=== PATIENT | female | born 1965 | race Caucasian/White ===

== ENCOUNTER 2022-06-09 10:30 | Outpatient (RCR) | payer BC, SELFPAY | END 2022-06-13 23:59 | LOC: DC 10:30 | DX: R73.03 Prediabetes (principal) | CPT/HCPCS: 97802; G0108 ==

== ENCOUNTER 2022-07-01 14:07 | Outpatient (RCR) | payer BC, SELFPAY | END 2022-07-14 23:59 | LOC: DC 14:07 | DX: R73.03 Prediabetes (principal) | CPT/HCPCS: 97803 ==

== ENCOUNTER 2022-07-16 16:01 | Outpatient (RCR) | payer BC, SELFPAY | END 2022-08-11 23:59 | LOC: DC 16:01 | DX: R73.03 Prediabetes (principal) | CPT/HCPCS: 97803 ==

== ENCOUNTER → 2024-07-07 | Outpatient (CLI) | payer BC, SELFPAY ==
[2024-07-07 10:54] LABS: Erythrocyte Sedimentation Rate 2 mm/hr (0-30)
[2024-07-07 10:57] LABS: Absolute Lymphocyte Count 1.88 X10^3/uL (0.83-4.51); Absolute Neutrophil Count 4.2 X10^3/uL (2.0-7.7); Basophil# 0.05 X10^3/uL; Basophil% 0.7 % (0-1); Eosinophil# 0.27 X10^3/uL; Eosinophils% 3.9 % (0-5); Hematocrit 40.5 % (37-47); Hemoglobin 13.5 g/dL (12.0-15.0); Lymphocyte # 1.88 X10^3/ul (0.83-4.51); Lymphocyte % 27.4 % (19-41); Mean Corp Hgb Conc 33.3 g/dL (32-36); Mean Corpuscular Volume 87.1 fL (81-99); Mean Platelet Vol. 8.8 fl (6.2-12.0); Monocyte# 0.46 X10^3/uL; Monocyte% 6.7 % (0-10); NRBC Flagged by Analyzer 0 % (0-5); Neutrophil # 4.17 X10^3/uL (2.7-7.7); Platelet Count 335 K/mm3 (150-450); RBC Distribution Width CV 13.1 % (11.6-14.6); RBC Distribution Width SD 41.1 fl (35.1-43.9); Red Blood Count 4.65 M/mm3 (4.2-5.4); White Blood Count 6.9 K/mm3 (4.4-11.0)
[2024-07-07 11:35] LABS: Vitamin B12 1468 pg/mL (211-911)
[2024-07-07 13:12] LABS: CRP < 2.90 mg/L (0.0-3.0); Ferritin 37 ng/mL (8-252); Free T3 2.7 pg/mL (2.18-3.98); LDH 174 U/L (84-246); Thyroid Stim Hormone (TSH) 0.653 uIU/mL (0.358-3.740)
[2024-07-11 06:08] LABS: Anti-Centromere B Ab <0.2 AI (0.0-0.9); Anti-Chromatin <0.2 AI (0.0-0.9); Anti-Jo <0.2 AI (0.0-0.9); Anti-Scleroderma-70 AB <0.2 AI (0.0-0.9); Anti-dsDNA Ab 1 IU/mL (0-9); Beef <0.10 kU/L (Class 0); Chocolate <0.10 kU/L (Class 0); Codfish <0.10 kU/L (Class 0); Corn <0.10 kU/L (Class 0); Egg, Whole 0.32 kU/L (Class I); Milk (Cow) 0.82 kU/L (Class II); Mussels <0.10 kU/L (Class 0); Peanut <0.10 kU/L (Class 0); Pork <0.10 kU/L (Class 0); RNP Ab <0.2 AI (0.0-0.9); SJOGREN'S Anti-SS-A test < 0.2 AI (0.0-0.9); SJOGREN'S Anti-SS-B test < 0.2 AI (0.0-0.9); Salmon <0.10 kU/L (Class 0); Shrimp <0.10 kU/L (Class 0); Smith Ab 0.2 AI (0.0-0.9); Soybean <0.10 kU/L (Class 0); Tuna <0.10 kU/L (Class 0); Wheat <0.10 kU/L (Class 0)
[2024-07-11 12:08] LABS: ACCA 14 units (0-90); ALCA 66 units (0-60); AMCA 102 units (0-100); Albumin 4.2 g/dL (2.9-4.4); Alpha-1-Globulins 0.2 g/dL (0.0-0.4); Alpha-2-Globulins 0.6 g/dL (0.4-1.0); Angiotensin Convert Enzyme < 15 U/L (14-82); Cytoplasmic Ab (C-ANCA) <1:20 titer (Neg:<1:20); Endomysial Antibody IgA Negative (Negative); Gamma Globulin 0.9 g/dL (0.4-1.8); IgG, Quant 958 mg/dL (586-1602); Immunoglobulin A 100 mg/dL (87-352); Immunoglobulin E 110 IU/mL (6-495); Immunoglobulin G, Subclass 1 536 mg/dL (248-810); Immunoglobulin G, Subclass 2 258 mg/dL (130-555); Immunoglobulin G, Subclass 3 23 mg/dL (15-102); Immunoglobulin G, Subclass 4 20 mg/dL (2-96); Immunoglobulin M 106 mg/dL (26-217); PROEL- TOTAL PROTEIN 6.9 g/dL (6.0-8.5); Perinuclear Ab (P-ANCA) <1:20 titer (Neg:<1:20); gASCA 28 units (0-50); t-Transglutaminase IgA <2 U/mL (0-3)
== END | disposition home or self-care (01) ==
PROVIDERS: PCP Family Medicine; Referring Provider Internal Medicine Gastroenterology; Visit Provider Internal Medicine Gastroenterology
DX: R10.9 Unspecified abdominal pain (principal)
CPT/HCPCS: 36415; 82164; 82607; 82728; 82746; 82784; 82785; 82787; 83516; 83615; 84165; 84439; 84443; 84481; 85025; 85652; 86003; 86005; 86036; 86037; 86140; 86225; 86235; 86255; 86334; 86671

== ENCOUNTER → 2024-07-10 | Outpatient (CLI) | payer BC, SELFPAY ==
--- NOTE | 2024-07-10 13:36 | RAD_ITS ---
EXAM: XR ABDOMEN, 1 VIEW CLINICAL INDICATION: constipation and sitz marker TECHNIQUE: Frontal supine view of the abdomen/pelvis. COMPARISON: No relevant prior studies available. FINDINGS: LOWER THORAX: No acute pathology. GASTROINTESTINAL TRACT: Enhancement there are 21 Sitzmarks present with the majority seen overlying the cecum and proximal transverse colon. There is a large amount of stool seen throughout the colon. ORGANS: Unremarkable as visualized. No organomegaly. No abnormal calcifications. BONES/JOINTS: No acute pathology. SOFT TISSUES: No acute pathology. RAD/Abdomen Single View IMPRESSION: Large amount of stool seen throughout colon compatible with constipation. There are 21 Sitzmarks present with the majority in the proximal colon. Electronically Signed: Chon Diamond MD at 17:08 EST ,
== END | disposition home or self-care (01) ==
LOC: RAD 13:28
PROVIDERS: PCP Family Medicine; Referring Provider Internal Medicine Gastroenterology; Visit Provider Internal Medicine Gastroenterology
DX: R10.9 Unspecified abdominal pain (principal); K59.00 Constipation, unspecified
CPT/HCPCS: 74018

== ENCOUNTER → 2024-07-12 | Outpatient (CLI) | payer BC, SELFPAY ==
--- NOTE | 2024-07-12 14:21 | RAD_ITS ---
PROCEDURE: ABDOMEN SINGLE VIEW REASON FOR EXAM: Constipation. Sitz marker. TECHNIQUE: Single view abdomen. COMPARISON: None. RAD/Abdomen Single View IMPRESSION: Numerous Sitz markers are seen in the colon, from the level of the ascending co durga to the sigmoid colon. A prominent amount of stool is seen in the colon, but not clearly excessive. The bowel-gas pattern is unremarkable. No mass or mass effect is seen. Thoracolumbar dextroscoliosis is centered abou t L2. Degenerative changes and postsurgical changes of the lumbosacral spine are also noted. Mild sacroiliac joint degenerative changes are seen Reading Location: [id number]
== END | disposition home or self-care (01) ==
LOC: RAD 14:18
PROVIDERS: PCP Family Medicine; Referring Provider Internal Medicine Gastroenterology; Visit Provider Internal Medicine Gastroenterology
DX: R10.9 Unspecified abdominal pain (principal); K59.00 Constipation, unspecified
CPT/HCPCS: 74018

== ENCOUNTER → 2024-07-25 | Outpatient (CLI) | payer BC, SELFPAY ==
--- NOTE | 2024-07-25 09:01 | NM_ITS ---
EXAM: GASTRIC EMPTYING STUDY CLINICAL HISTORY: Constipation. COMPARISON: None. TECHNIQUE: The patient ingested a mixture of 1.2 mCi of sulfur colloid and oatmeal. FINDINGS: Imaging of the gastric region was obtained. 50% of the radiopharmaceutical exited the stomach at 1 hour. This is slightly delayed. NM/Gastric Emptying Study IMPRESSION: Mild delay in the gastric emptying. Reading Location: [id number]
== END | disposition home or self-care (01) ==
LOC: NM 09:00
PROVIDERS: PCP Family Medicine; Referring Provider Internal Medicine Gastroenterology; Visit Provider Internal Medicine Gastroenterology
DX: R10.9 Unspecified abdominal pain (principal)
CPT/HCPCS: 78264; A9541

== ENCOUNTER → 2024-08-28 | Outpatient (CLI) | payer BC, SELFPAY ==
--- NOTE | 2024-08-28 09:11 | RAD_ITS ---
PROCEDURE: ABDOMEN SINGLE VIEW 08/28/2024 REASON FOR EXAM: CONSTIPATION TECHNIQUE: Single view abdomen. COMPARISON: 07/12/2024 FINDINGS: Mild gaseous dilatation of the colon at the level of the splenic flexure to 5.8 cm. No definite or visible small bowel dilatation, with small-bowel loops being either largely fluid-filled or decompressed. Colonic stool burden is low. Grossly similar presumed pelvic phleboliths. Grossly similar multilevel lumbar spondylosis, dextroscoliosis, and operative changes. Mild joint space loss in the hips. RAD/Abdomen Single View IMPRESSION: 1. Findings are most compatible with mild colonic ileus. Colonic stool burden is low. 2. Additional description as above. Reading Location: [id number]
== END | disposition home or self-care (01) ==
LOC: RAD 09:08
PROVIDERS: PCP Family Medicine; Referring Provider Internal Medicine Gastroenterology; Visit Provider Internal Medicine Gastroenterology
DX: R10.9 Unspecified abdominal pain (principal); K59.00 Constipation, unspecified
CPT/HCPCS: 74018